=== PATIENT | female | born 1995 | race Two or more races ===

== ENCOUNTER 2018-11-25 09:18 | Inpatient (IN) | payer MEDICAID ==
[~2018-11-25] VITALS: Ht 160 cm; Wt 75.7 kg
[2018-11-25] MEDS ORDERED: ONDANSETRON PF 4 MG/2 ML VIAL. IV PRN ×4 (09:45→16:15)
[2018-11-25] MEDS ORDERED: IBUPROFEN 400 MG TABLET. PO PRN ×2 (09:45→16:30)
[2018-11-25] MEDS ORDERED: LIDOCAINE 1% PF 30 ML VIAL. INJ PRN (09:45)
[2018-11-25] MEDS ORDERED: 0.9 % SODIUM CHLORIDE 10 ML DISP.SYRIN. IV PRN ×2 (09:45→16:30)
[2018-11-25] MEDS ORDERED: ACETAMINOPHEN 325 MG TABLET. PO PRN ×2 (09:45→16:30)
[2018-11-25] MEDS ORDERED: OXYTOCIN 30 UNIT/500 ML PREMIX 500 ML IV PRN ×4 (09:45→16:30)
[2018-11-25] MEDS ORDERED: TERBUTALINE 1 MG/ML VIAL. SQ PRN (09:45)
[2018-11-25] MEDS ORDERED: CITRIC ACID/SODIUM CITRATE 30 ML SOLUTION. PO PRN (09:45)
[2018-11-25] MEDS ORDERED: BUTORPHANOL 2 MG/ML VIAL. IV PRN ×2 (09:45)
[2018-11-25] MEDS ORDERED: NALBUPHINE 10 MG/ML AMPUL. IV PRN ×2 (09:45)
[2018-11-25] MEDS ORDERED: fentaNYL PF VIAL 100 MCG/2 ML VIAL IV PRN ×8 (09:45)
[2018-11-25] MEDS ORDERED: TERBUTALINE 1 MG/ML VIAL. IV PRN (10:00)
[2018-11-25] MEDS ORDERED: AMPICILLIN SODIUM 2 GM in IV NORMAL SALINE 100ML 100 ML IV ONE (10:00)
[2018-11-25] MEDS: IV NORMAL SALINE 1000ML BAG 1,000 ML IV SCH ×2 (10:00→18:00)
[2018-11-25 10:08] LABS: BASO # 0.1 x10^3/uL (0.0-0.2); BASO % 1 % (0-3); EOS # 0.1 x10^3/uL (0.0-0.7); EOS % 1 % (0-3); HEMATOCRIT 32.6 % (36.0-47.0); HEMOGLOBIN 10.6 g/dL (12.0-15.5); LYMPH # 2.1 x10^3/uL (1.0-4.8); LYMPH % 20 % (24-48); MEAN CORPUSCULAR HEMOGLOBIN 25 pg (25-35); MEAN CORPUSCULAR HGB CONC 32 g/dL (31-37); MEAN CORPUSCULAR VOLUME 77 fL (79-100); MONO # 0.5 x10^3/uL (0.0-1.1); MONO % 5 % (0-9); NEUT # 7.7 x10^3/uL (1.8-7.7); NEUT % 74 % (31-73); PLATELET COUNT 137 x10^3/uL (140-400); RED BLOOD COUNT 4.24 x10^6/uL (3.50-5.40); RED CELL DISTRIBUTION WIDTH 17.3 % (11.5-14.5); WHITE BLOOD COUNT 10.5 x10^3/uL (4.0-11.0)
[2018-11-25 10:13] LABS: BILIRUBIN,URINE NEGATIVE (NEG); CLARITY,URINE CLEAR; COLOR,URINE YELLOW; NITRITE,URINE NEGATIVE (NEG); PH,URINE 6.5; PROTEIN,URINE NEGATIVE (NEG-TRACE)
[2018-11-25 10:17] LABS: BARBITURATES NEG (NEG); BENZODIAZEPINES NEG (NEG); CANNABINOIDS POS (NEG); COCAINE NEG (NEG); METHADONE NEG (NEG); OPIATES NEG (NEG); PHENCYCLIDINE NEG (NEG)
[2018-11-25 10:18] LABS: AMPHETAMINE/METHAMPHETAMINE NEG (NEG); SQUAMOUS EPITHELIAL CELL,UR FEW /LPF
[2018-11-25 10:19] LABS: BACTERIA,URINE FEW /HPF (0-FEW); RBC,URINE OCC /HPF (0-2)
[2018-11-25] MEDS: AMPICILLIN SODIUM 1 GM in IV NORMAL SALINE 50ML 50 ML IV SCH ×4 (10:20→22:00)
[2018-11-25] MEDS: IV RINGERS,LACTATED 1000ML 1,000 ML IV SCH ×6 (10:21→21:30)
[2018-11-25] MEDS ORDERED: L&D EPIDURAL SYRINGE 50 ML ONE ×2 (13:15→15:47)
[2018-11-25] MEDS ORDERED: L&D EPIDURAL CASSETTE 100 ML EPID PRN ×2 (13:30)
[2018-11-25] MEDS ORDERED: ROPIVacaine 0.2% IN 0.9%NACL PF 40 MG/20 ML DISP.SYRIN. EPID PRN ×3 (13:30→16:15)
[2018-11-25] MEDS ORDERED: ePHEDrine PF IN SALINE 50 MG/10 ML SYRINGE. IV PRN ×4 (13:30→16:15)
[2018-11-25] MEDS ORDERED: NALOXONE 0.4 MG/ML VIAL. IV PRN ×5 (13:30→16:15)
[2018-11-25] MEDS ORDERED: fentaNYL PF VIAL 100 MCG/2 ML VIAL IV ONE (13:45)
[2018-11-25] MEDS ORDERED: L&D EPIDURAL CASSETTE 100 ML EP PRN (13:45)
[2018-11-25] MEDS ORDERED: IV RINGERS,LACTATED 1000ML 1,000 ML IV PRN (13:45)
[2018-11-25] MEDS ORDERED: L&D EPIDURAL 50 ML SYRINGE. ONE (14:00)
[2018-11-25] MEDS ORDERED: IV RINGERS,LACTATED 1000ML 1,000 ML IV SCH ×2 (15:58→16:30)
[2018-11-25] MEDS ORDERED: L&D EPIDURAL SYRINGE 50 ML EPID PRN (16:00)
[2018-11-25] MEDS ORDERED: fentaNYL PF VIAL 100 MCG/2 ML VIAL EPID PRN ×2 (16:00→16:15)
[2018-11-25] MEDS ORDERED: MMR per PROTOCOL. MC PRN (16:29)
[2018-11-25] MEDS ORDERED: PHENYLEPH/MINERAL OIL/PETROLAT RECTAL OINTMENT TUBE. RC PRN (16:30)
[2018-11-25] MEDS ORDERED: MAG HYDROX/ALUMINUM HYD/SIMETH 30 ML ORAL.SUSP PO PRN (16:30)
[2018-11-25] MEDS ORDERED: HYDROCORTISONE 1% TOPICAL OINTMENT 30GM TUBE. TP PRN (16:30)
[2018-11-25] MEDS ORDERED: SIMETHICONE 80 MG TAB.CHEW PO PRN (16:30)
[2018-11-25] MEDS ORDERED: BENZOCAINE 20% TOPICAL AEROSOL SPRAY 57GM CAN. TP PRN (16:30)
[2018-11-25] MEDS ORDERED: diphenhydrAMINE HCL 25 MG CAPSULE PO PRN (16:30)
[2018-11-25] MEDS ORDERED: MAGNESIUM HYDROXIDE 2,400 MG/30 ML ORAL.SUSP. PO PRN (16:30)
[2018-11-25] MEDS ORDERED: ZOLPIDEM 5 MG TABLET. PO PRN (16:30)
--- NOTE | 2018-11-25 16:31 | PDOC1 ---
OB - History Hx of Present Care: Good Care Obstetrical Complications: None Medical Complications: None Past Family/Social History * Past Medical, Surgical, Family and Obstetric Histories reviewed from chart. Blood Type: A+ Rubella: Immune RPR/VDRL: Negative GBS Status: Unknown HBsAG: Negative OB - Chief Complaint & HPI Date of Admission: Date of Admission: Nov 25, 2018 at 09:18 Chief Complaint/History : 3 Para: 2 EDC: Nov 23, 2018 Reason for admission: induction of labor Admission Nurse Assessment Rev: Yes OB - Admission Exam Physical Exam HEENT: Normal, Nasal Mucosa Normal, Oropharynx Normal, Moist Membranes, Fontanelles Normal Heart: Regular Rate Lungs: Clear, Equal Abdomen: Gravid Extremities: Normal Pulses, No tenderness or swelling Reflexes: Normal Cervical Dilatation: 4cm Effacement: 75% Station: -3 Membranes: Intact Amniotic Fluid: Clear Heart Rate: Normal Accelerations: Accelerations Present Decelerations: No decelerations Short Term Variability: Present Contractions on Admission: >10 Minutes Apart Intensity: Moderate Assessment/Plan Assessment/Plan TIUP Induction ACS BRADEN ANTON MD Nov 25, 2018 16:31
--- NOTE | 2018-11-25 16:45 | PDOC ---
VAGINAL DELIVERY DATE DATE: 11/25/18 TIME: 16:42 : 3 Para: 1 EDC: Nov 23, 2018 VAGINAL DELIVERY: VTX VACCUM ASSISTED: No SEX: Male WEIGHT 6#12oz Nuchal Cord: No Amniotic Fluid: Clear PAIN: Epidural EPISIOTOMY: No EXTENSION: No EBL 300cc COMPLICATIONS None CONDITION Stable Signs of Intrauterine Infectio: None Shoulder Dystocia: No DIAGNOSIS TIUP BRADEN Segundo MD Nov 25, 2018 16:45
[2018-11-25] MEDS: FERROUS SULFATE 325 MG TABLET. PO SCH (17:00)
[2018-11-25 20:05] VITALS: BP 101/59
[2018-11-25 21:10] VITALS: BP 96/55
[2018-11-25] MEDS ORDERED: IBUPROFEN 400 MG TABLET. PO SCH (22:00)
[2018-11-26 01:15] VITALS: BP 103/63
[2018-11-26 06:29] VITALS: BP 100/68
--- NOTE | 2018-11-26 11:07 | PDOC ---
Provider Note Provider Note Doing well VSS uterus NTT FU in AM Vital Sign - Last 24 Hours 11/25/18 11/25/18 11/25/18 11/26/18 20:05 20:39 21:10 01:15 Temp 97.9 98.4 97.5 97.9 98.4 97.5 Pulse 70 66 71 Resp 16 16 14 B/P (MAP) 101/59 (73) 96/55 (69) 103/63 (76) Pulse Ox 99 98 99 O2 Delivery Room Air Room Air Room Air Room Air 11/26/18 06:29 Temp 98.2 98.2 Pulse 63 Resp 12 B/P (MAP) 100/68 (79) Pulse Ox 99 O2 Delivery Room Air Intake and Output 11/25/18 11/25/18 11/26/18 14:59 22:59 06:59 Intake Total 600 ml 800 ml Balance 600 ml 800 ml CBC - BMP 11/26/18 04:04 BRADEN ANTON MD Nov 26, 2018 11:07
--- NOTE | 2018-11-26 16:07 | NUR ---
SS following up with referral regarding "limited care, has transportation issues, positive Marijuana, lives in [place], two other children have been present to visit at hospital with pt's significant other." SS reviewed mother and infant chart and spoke with mother RN. Mother had positive UDS for Marijuana. SS met with mother to assess circumstances surrounding the referral. Mother admitted to THC use during for nausea and vomiting. SS discussed concerns with THC use and notified mother of hotline report. Mother reported that she was living in [place], [place] when she found out she was and received [place] Medicaid. Mother reported that she lives with her two daughters and infants father. She reported that infants father received job in [place] and they moved to [place]. Mother reported that she did not switch [place] Medicaid during her because she did not want a lapse in insurance. She reported that she plans to switch to [place] Medicaid now that infant has been born. Mother reported that she saw Dr. Alistair Sibley for care and was consistent with visits through the second trimester but Dr. Sibley wanted her to come every two weeks in her third trimester and it was difficult to do as she was at home with her two daughters. She reported that they have one vehicle and infants father drives it to work. She reported that when has appointments he can take off work or let her have the car. She reported that he supports her and the children financially and is a good support. Mother reported having all needed supplies to include diapers, wipes, clothing, and car seat. Mother reported that she has WIC in place. She reported that her daughters go to [facility] but would like seen in [place], [place] until Medicaid is switched to [place]. and Mother RN notified. [facility] hotline report made to THC use, intake# [id number].
[2018-11-26 19:23] VITALS: BP 106/70
[2018-11-26] MEDS: IBUPROFEN 400 MG TABLET. PO PRN (19:41)
[2018-11-27] MEDS: IBUPROFEN 400 MG TABLET. PO PRN (04:35)
[2018-11-27 05:00] VITALS: BP 105/67
[2018-11-27] MEDS: FERROUS SULFATE 325 MG TABLET. PO SCH (07:55)
--- NOTE | 2018-11-27 09:51 | PDOC3 ---
OB DISCHARGE SUMMARY DATE OF ADMISSION: 11/25/18 DATE OF DISCHARGE: 11/27/18 REASON FOR ADMISSION: Onset of labor INTRAPARTUM PROCEDURES: Spontanous Vag Deliv DISCHARGE DIAGNOSIS: Term Delivered DISCHARGE INFORMATION: Activity (ad jessee), Diet (regular), Instructions (pelvic rest x 6 wks) HOSPITAL COURSE Term gestation delivered vaginally without complications. AJ MOISE Jr, MD Nov 27, 2018 09:51
[2018-11-27] MEDS ORDERED: NAPR500T8 PO (09:53)
--- NOTE | 2018-11-27 09:53 | DISCH ---
DISCHARGE INSTRUCTIONS Condition on Discharge Condition on Discharge: Stable Activity After Discharge Activity Instructions for Disc: Activity as tolerated Lifting Instructions after Dis: No heavy lifting Driving Instructions after Dis: Do not drive today Diet after Discharge Diet after Discharge: Regular Contacting the DRCrystal after DC Call your doctor for: Concerns you may have Follow-Up Follow up with: Dr. Sibley in 2 wks AJ MOISE Jr, MD Nov 27, 2018 09:53
[2018-11-27 10:45] VITALS: BP 110/68
== END 2018-11-27 13:36 | disposition home or self-care (01) | DRG 807 ==
LOC: 3 SO LND 09:18 → 3 NORTH 19:50
PROVIDERS: ADMIT Specialist; ATTEND Specialist
PROC: 10E0XZZ Delivery of Products of Conception, External Approach (ICD-10-PCS; principal; 2018-11-25)
PROC: 00HU33Z Insertion of Infusion Device into Spinal Canal, Percutaneous Approach (ICD-10-PCS; 2018-11-25)
PROC: 3E0R3BZ Introduction of Anesthetic Agent into Spinal Canal, Percutaneous Approach (ICD-10-PCS; 2018-11-25)
DX: O80 Encounter for full-term uncomplicated delivery (principal); Z37.0 Single live birth; Z3A.00 Weeks of gestation of pregnancy not specified
CPT/HCPCS: 36415; 80307; 81001; 85014; 85025; 86592; 86850; 86900; 86901; J0290; J2405; J2590; J7120; G0378